=== PATIENT | male | born 1940 | race Caucasian/White ===

== ENCOUNTER 2022-01-29 13:00 | Outpatient (RCR) | payer MEDICARE | END 2022-02-10 | LOC: PT 13:00 | PROVIDERS: ATTEND Family Medicine | DX: S34.21XA Injury of nerve root of lumbar spine, initial encounter (principal) ==

== ENCOUNTER 2022-02-17 13:08 | Outpatient (RCR) | payer MEDICARE | END 2022-03-12 | LOC: PT 13:08 | PROVIDERS: ATTEND Family Medicine | DX: M54.16 Radiculopathy, lumbar region (principal); M54.50 Low back pain, unspecified; M51.36 Other intervertebral disc degeneration, lumbar region; S34.109D Unspecified injury to unspecified level of lumbar spinal cord, subsequent encounter; M62.81 Muscle weakness (generalized) | CPT/HCPCS: 97139 ==

== ENCOUNTER 2022-02-24 12:58 | Outpatient (RCR) | payer MEDICARE | END 2022-03-12 | LOC: PT 12:58 | PROVIDERS: ATTEND Family Medicine | DX: G54.4 Lumbosacral root disorders, not elsewhere classified (principal) ==